=== PATIENT | female | born 1995 ===

== ENCOUNTER → 2023-08-09 18:38 | Outpatient (ROUT) | payer BC, SELFPAY | PROVIDERS: Visit Provider Dermatology | DX: L08.9 Local infection of the skin and subcutaneous tissue, unspecified (principal) | CPT/HCPCS: 87070; 87075; 87077; 87147; 87186; 87205 ==

== ENCOUNTER → 2023-12-16 19:18 | Outpatient (ROUT) | payer BC, SELFPAY | PROVIDERS: Visit Provider Dermatology | DX: L20.89 Other atopic dermatitis (principal); Q82.8 Other specified congenital malformations of skin | CPT/HCPCS: 87070; 87075; 87077; 87147; 87186; 87205 ==